=== PATIENT | female | born 1975 | race African-American/Black ===

== ENCOUNTER 2019-05-22 09:55 | Emergency (ER) | payer MEDICAID ==
[~2019-05-22] VITALS: Ht 165.1 cm; Wt 52.5 kg
[2019-05-22] MEDS ORDERED: KEPRA (10:01)
[2019-05-22] MEDS ORDERED: LEVETIRACETAM 500MG PREMIX 100 ML IV ONE (11:30)
[2019-05-22 13:00] VITALS: BP 135/82
== END 2019-05-22 13:00 | disposition home or self-care (01) ==
LOC: ER 09:55
DX: G40.909 Epilepsy, unspecified, not intractable, without status epilepticus (principal); F12.10 Cannabis abuse, uncomplicated; F17.200 Nicotine dependence, unspecified, uncomplicated; Z91.14 Patient's other noncompliance with medication regimen
CPT/HCPCS: 96365; 99283; J1953; Z7610

== ENCOUNTER 2019-07-23 21:43 | Inpatient (IN) | payer MEDICAID ==
[~2019-07-23] VITALS: Ht 165.1 cm; Wt 52.2 kg
[~2019-07-23 21:43] MED LIST: KEPRA
[2019-07-23] MEDS ORDERED: SODIUM CHLORIDE 0.9% 1,000 ML IV ONE (23:22)
[2019-07-23] MEDS ORDERED: MORPHINE SULFATE 4 MG/ML CPJ (NOT FOR IM USE) IV STA (23:22)
[2019-07-23] MEDS ORDERED: ONDANSETRON HCL 4MG/2ML INJ IV STA (23:22)
[2019-07-24 00:20] LABS: BASOPHILS % 0.4 % (0.0-2.0); EOSINOPHILS % 0.6 % (0.0-5.0); HEMATOCRIT. 40.2 % (36.0-48.0); HEMOGLOBIN. 13.6 g/dL (12.0-16.0); LYMPHOCYTES % 18.9 % (20.0-50.0); MEAN CORPUSCULAR HEMOGLOBIN 30.9 pg (28.0-32.0); MEAN CORPUSCULAR VOLUME 91.5 fL (81.0-99.0); MEAN PLATELET VOLUME 8.6 fl (7.4-10.4); MONOCYTES % 6.5 % (2.0-8.0); NEUTROPHILS % 73.6 % (40.0-76.0); PLATELET 215 x1000/uL (130-400); RED BLOOD CELL COUNT 4.39 mill/uL (4.2-5.4); RED CELL DISTRIBUTION WIDTH 13.7 % (11.6-14.6)
[2019-07-24 00:26] LABS: CHLORIDE 107 mEq/L (98-107)
[2019-07-24 00:29] LABS: HCG SCREEN NEGATIVE
[2019-07-24 00:32] LABS: PROTHROMBIN TIME 10.4 sec (9.6-11.0)
[2019-07-24 00:34] LABS: CLARITY URINE CLEAR (CLEAR); COLOR URINE YELLOW (YELLOW); KETONES URINE NEGATIVE (NEGATIVE); LEUKOCYTE ESTERASE URINE 1+ (NEGATIVE); NITRITE URINE NEGATIVE (NEGATIVE); OCCULT BLOOD URINE 2+ (NEGATIVE); PROTEIN URINE NEGATIVE (NEGATIVE); UROBILINOGEN URINE 0.2 E.U./dL (0.2-1.0)
[2019-07-24] MEDS ORDERED: KETOROLAC 30MG/ML VIAL IV ONE (00:45)
[2019-07-24] MEDS ORDERED: IOHEXOL-300 100 ML BOTTLE ONE (02:18)
[2019-07-24] MEDS ORDERED: CEFTRIAXONE 1 G PREMIX 50 ML IV ONE (02:30)
[2019-07-24] MEDS ORDERED: ENOXAPARIN 40MG/0.4ML SYR SUBCUT ONE (03:00)
[2019-07-24] MEDS ORDERED: ENOXAPARIN 60MG/0.6ML SYR SUBCUT SCH (04:00)
[2019-07-24 05:45] VITALS: BP 128/80
[2019-07-24] MEDS ORDERED: QUET300T2 PO (06:16)
[2019-07-24] MEDS ORDERED: KEPP500 PO (06:16)
[2019-07-24] MEDS ORDERED: ACETAMINOPHEN 325MG TABLET PO PRN (07:00)
[2019-07-24] MEDS ORDERED: ONDANSETRON HCL 4MG/2ML INJ IV PRN (07:00)
[2019-07-24 08:00] VITALS: BP 117/65
[2019-07-24] MEDS ORDERED: IPRATROPIUM/ALBUTEROL 0.5-3(2.5)MG/3ML NEB HHN PRN (08:15)
[2019-07-24] MEDS ORDERED: SODIUM CHLORIDE 0.9% 1,000 ML IV SCH (08:15)
[2019-07-24 09:59] LABS: *AMPHETAMINES SCREEN URINE NEGATIVE (NEGATIVE)
[2019-07-24 10:00] LABS: *BARBITURATES SCREEN URINE NEGATIVE (NEGATIVE); *BENZODIAZEPINES SCREEN URINE NEGATIVE (NEGATIVE); METHADONE URINE SCREEN NEGATIVE (NEGATIVE); PHENCYCLIDINE URINE SCREEN NEGATIVE (NEGATIVE)
[2019-07-24] MEDS: HYDROCODONE/ACETAMINOPHEN 5/325MG TABLET PO PRN ×2 (10:11→18:49)
[2019-07-24] MEDS: AZITHROMYCIN 500 MG TABLET PO SCH (10:11)
[2019-07-24 10:16] LABS: *COCAINE SCREEN URINE PRESUMTIVE POSITIVE (NEGATIVE); CANNABINOID URINE SCREEN PRESUMTIVE POSITIVE (NEGATIVE); OPIATES URINE SCREEN PRESUMTIVE POSITIVE (NEGATIVE)
[2019-07-24 12:00] VITALS: BP 137/85
[2019-07-24] MEDS ORDERED: KETOROLAC 30MG/ML VIAL IV PRN (15:30)
[2019-07-24 16:00] VITALS: BP 129/83
[2019-07-24] MEDS ORDERED: BISACODYL 5MG TABLET PO PRN (16:45)
[2019-07-24] MEDS: LEVETIRACETAM 500MG TABLET PO SCH (16:55)
[2019-07-24] MEDS ORDERED: SODIUM CHLORIDE 10% FOR INH 15ML VIAL NEB INH NR (18:30)
[2019-07-24] MEDS: PREDNISONE 20MG TABLET PO SCH (18:46)
[2019-07-24] MEDS: IPRATROPIUM/ALBUTEROL 0.5-3(2.5)MG/3ML NEB HHN SCH (18:51)
[2019-07-24 20:00] VITALS: BP 128/69
[2019-07-24] MEDS ORDERED: CEFTRIAXONE 1 G PREMIX 50 ML IV SCH (21:00)
[2019-07-24] MEDS: GUAIFENESIN 600MG ER TABLET PO SCH (22:20)
[2019-07-25] VITALS: BP 124/71
[2019-07-25 04:00] VITALS: BP 145/78
[2019-07-25 06:49] LABS: BASOPHILS % 0.1 % (0.0-2.0); HEMATOCRIT. 41.7 % (36.0-48.0); HEMOGLOBIN. 13.9 g/dL (12.0-16.0); LYMPHOCYTES % 9.7 % (20.0-50.0); MEAN CORPUSCULAR VOLUME 92.5 fL (81.0-99.0); MEAN PLATELET VOLUME 9.4 fl (7.4-10.4); MONOCYTES % 3.3 % (2.0-8.0); NEUTROPHILS % 86.9 % (40.0-76.0); PLATELET 225 x1000/uL (130-400); RED CELL DISTRIBUTION WIDTH 13.8 % (11.6-14.6)
[2019-07-25 07:01] LABS: CHLORIDE 107 mEq/L (98-107)
[2019-07-25] MEDS: IPRATROPIUM/ALBUTEROL 0.5-3(2.5)MG/3ML NEB HHN SCH ×2 (07:55→08:15)
[2019-07-25] MEDS: AZITHROMYCIN 500 MG TABLET PO SCH (08:58)
[2019-07-25] MEDS: GUAIFENESIN 600MG ER TABLET PO SCH (08:58)
[2019-07-25] MEDS: LEVETIRACETAM 500MG TABLET PO SCH (08:58)
[2019-07-25] MEDS: PREDNISONE 20MG TABLET PO SCH (08:58)
[2019-07-25] MEDS ORDERED: DOCUSATE SODIUM 250MG CAPSULE PO SCH (09:00)
[2019-07-25 12:48] VITALS: BP 124/82
== END 2019-07-25 13:10 | disposition home or self-care (01) | DRG 133 ==
LOC: ER 21:43 → 8WST 07-24 02:26 → ENRESERV 07-24 03:31
PROVIDERS: ADMIT Internal Medicine; ATTEND Internal Medicine
DX: J96.00 Acute respiratory failure, unspecified whether with hypoxia or hypercapnia (principal); J68.0 Bronchitis and pneumonitis due to chemicals, gases, fumes and vapors; D25.9 Leiomyoma of uterus, unspecified; F14.10 Cocaine abuse, uncomplicated; F17.210 Nicotine dependence, cigarettes, uncomplicated; G40.909 Epilepsy, unspecified, not intractable, without status epilepticus; K59.09 Other constipation; N39.0 Urinary tract infection, site not specified; Z82.49 Family history of ischemic heart disease and other diseases of the circulatory system; Z71.6 Tobacco abuse counseling
CPT/HCPCS: 36415; 71045; 74177; 80048; 80305; 81003; 84484; 84703; 87077; 87186; 93005; 93970; 94640; 99291; J0696; J1650; J1885; J2270; J2405; J7030; J7131; J7512; J7620; Q9967

== ENCOUNTER 2020-06-15 16:18 | Emergency (ER) | payer MEDICAID, OTHER ==
[~2020-06-15] VITALS: Ht 167.6 cm; Wt 51.0 kg
[~2020-06-15 16:18] MED LIST changes: +KEPP500 PO; -KEPRA; +QUET300T2 PO
[2020-06-15] MEDS ORDERED: LEVETIRACETAM 1000MG/100ML 100 ML IV ONE (17:15)
[2020-06-15 17:28] LABS: BASOPHILS % 0.3 % (0.0-2.0); EOSINOPHILS % 0.5 % (0.0-5.0); HEMATOCRIT. 41.7 % (36.0-48.0); HEMOGLOBIN. 14.1 g/dL (12.0-16.0); LYMPHOCYTES % 8.4 % (20.0-50.0); MEAN CORPUSCULAR HEMOGLOBIN 30.9 pg (28.0-32.0); MEAN CORPUSCULAR VOLUME 91.5 fL (81.0-99.0); MONOCYTES % 5.5 % (2.0-8.0); NEUTROPHILS % 85.3 % (40.0-76.0); PLATELET 226 x1000/uL (130-400); RED BLOOD CELL COUNT 4.56 mill/uL (4.2-5.4); RED CELL DISTRIBUTION WIDTH 14.1 % (11.6-14.6)
[2020-06-15 17:34] LABS: CHLORIDE 111 mEq/L (98-107)
[2020-06-15 17:38] LABS: ETHANOL BLOOD < 10 mg/dL
[2020-06-15 19:05] VITALS: BP 130/76
== END 2020-06-15 19:44 | disposition home or self-care (01) ==
LOC: ER 16:18
DX: R56.9 Unspecified convulsions (principal); F12.10 Cannabis abuse, uncomplicated; M25.511 Pain in right shoulder
CPT/HCPCS: 73030; 80053; 80320; 85025; 96365; 99284; J1953; G0480

== ENCOUNTER 2022-03-11 02:51 | Emergency (ER) | payer OTHER ==
[~2022-03-11] VITALS: Ht 165.1 cm; Wt 54.0 kg
[~2022-03-11 02:51] MED LIST changes: +NITR-87 MT
[2022-03-11 03:21] VITALS: BP 167/86
== END 2022-03-11 05:17 | disposition left against medical advice (07) ==
LOC: ER 02:51
DX: Z53.21 Procedure and treatment not carried out due to patient leaving prior to being seen by health care provider (principal); J44.9 Chronic obstructive pulmonary disease, unspecified; R56.9 Unspecified convulsions; F31.9 Bipolar disorder, unspecified; D64.9 Anemia, unspecified; Z86.711 Personal history of pulmonary embolism

== ENCOUNTER 2022-04-12 03:33 | Emergency (ER) | payer OTHER ==
[~2022-04-12] VITALS: Ht 162.6 cm; Wt 50.0 kg
[2022-04-12 03:36] VITALS: BP 141/83
== END 2022-04-12 04:16 | disposition left against medical advice (07) ==
LOC: ER 03:33
DX: Z53.21 Procedure and treatment not carried out due to patient leaving prior to being seen by health care provider (principal)
CPT/HCPCS: 82962

== ENCOUNTER 2024-02-28 12:00 | Emergency (ER) | payer MEDICAID, OTHER ==
[~2024-02-28] VITALS: Ht 167.6 cm; Wt 53.0 kg
[2024-02-28 12:02] VITALS: BP 140/92; PULSE 90; RESP 18; TEMP 98.4; O2SAT 98
[2024-02-28] MEDS: TETANUS, DIPHTHERIA, PERTUSSIS VAC/PF 0.5ML (>10YR OLD) IM ONE (13:16)
[2024-02-28] MEDS: LIDOCAINE HCL/PF 1% 10 MG/ML 5ML VIAL INFIL ONE (13:38)
== END 2024-02-28 13:42 | disposition left against medical advice (07) ==
LOC: ER 12:00
DX: S61.216A Laceration without foreign body of right little finger without damage to nail, initial encounter (principal); S61.214A Laceration without foreign body of right ring finger without damage to nail, initial encounter; J45.909 Unspecified asthma, uncomplicated; J44.9 Chronic obstructive pulmonary disease, unspecified; Z86.59 Personal history of other mental and behavioral disorders; Y04.0XXA Assault by unarmed brawl or fight, initial encounter; Y93.89 Activity, other specified; Y92.89 Other specified places as the place of occurrence of the external cause; Y99.8 Other external cause status
CPT/HCPCS: 90715; 12002; 90471; 99283; Z7610 ×2

== ENCOUNTER 2024-04-15 09:53 | Emergency (ER) | payer MEDICARE, MEDICAID ==
[~2024-04-15] VITALS: Ht 172.7 cm; Wt 75.0 kg
[2024-04-15 09:54] VITALS: O2SAT 99
[2024-04-15] MEDS: PHENYTOIN SODIUM EXTENDED 100MG CAPSULE PO ONE (10:34)
[2024-04-15 10:38] LABS: BASOPHILS % 0.3 % (0.0-2.0); EOSINOPHILS % 0.5 % (0.0-5.0); HEMATOCRIT. 41.8 % (36.0-48.0); HEMOGLOBIN. 13.9 g/dL (12.0-16.0); LYMPHOCYTES % 15.9 % (20.0-50.0); MEAN CORPUSCULAR HEMOGLOBIN 31.1 pg (28.0-32.0); MEAN CORPUSCULAR HGB CONC 33.2 g/dL (31.0-37.0); MEAN CORPUSCULAR VOLUME 93.8 fL (81.0-99.0); MEAN PLATELET VOLUME 8.8 fl (7.4-10.4); MONOCYTES % 4.7 % (2.0-8.0); NEUTROPHILS % 78.6 % (40.0-76.0); PLATELET 260 x1000/uL (130-400); RED BLOOD CELL COUNT 4.46 mill/uL (4.2-5.4); RED CELL DISTRIBUTION WIDTH 14.5 % (11.6-14.6); WHITE BLOOD COUNT 13.2 x1000/uL (4.5-11.0)
[2024-04-15 11:02] LABS: CARBON DIOXIDE 27 mEq/L (21-32); CHLORIDE 107 mEq/L (98-107); POTASSIUM 3.9 mEq/L (3.5-5.1); SODIUM 139 mEq/L (136-145)
[2024-04-15 11:03] LABS: CALCIUM 9.9 mg/dL (8.7-10.4)
[2024-04-15 11:07] LABS: GLUCOSE 112 mg/dL (70-105)
[2024-04-15 11:08] LABS: UREA NITROGEN BLOOD 14 mg/dL (9-23)
[2024-04-15 11:12] LABS: ETHANOL BLOOD < 10 mg/dL (<10); PHENYTOIN < 2.0 ug/mL (10-20)
[2024-04-15 14:03] VITALS: BP 168/87; PULSE 61; RESP 12; TEMP 98.2
== END 2024-04-15 15:25 | disposition home or self-care (01) ==
LOC: ER 10:15
DX: R56.9 Unspecified convulsions (principal); F31.9 Bipolar disorder, unspecified; F12.10 Cannabis abuse, uncomplicated; J44.1 Chronic obstructive pulmonary disease with (acute) exacerbation; Z86.59 Personal history of other mental and behavioral disorders
CPT/HCPCS: 36415; 80048; 80185; 80320; 85025; 99283; G0480